=== PATIENT | female | born 1970 | race Caucasian/White ===

== ENCOUNTER 2016-05-19 12:32 | Emergency (ER) | payer OTHER ==
[~2016-05-19] VITALS: Ht 152.4 cm; Wt 63.5 kg
[2016-05-19 14:09] VITALS: BP 108/68
== END 2016-05-19 14:10 | disposition home or self-care (01) ==
LOC: ER 12:32
DX: S63.92XA Sprain of unspecified part of left wrist and hand, initial encounter (principal); W10.9XXA Fall (on) (from) unspecified stairs and steps, initial encounter; Y93.89 Activity, other specified; Y92.89 Other specified places as the place of occurrence of the external cause; Y99.9 Unspecified external cause status